=== PATIENT | female | born 1980 | race African-American/Black ===

== ENCOUNTER 2016-10-04 09:56 | Emergency (ER) | payer OTHER ==
[~2016-10-04] VITALS: Ht 165.1 cm; Wt 74.8 kg
--- NOTE | ~2016-10-04 | EKG ---
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
[~2016-10-04 09:56] MED LIST: BC POWDER; BC POWDER PO; CLEOCIN HCL150 MG PO; CYCLOBENZAPRINE5 MG PO; NORCO 5-325 TA1 EACH PO
[2016-10-04 10:27] LABS: MCH 20.5 pg (26.0-34.0); RDW 18.1 % (10.5-14.5)
[2016-10-04 10:28] LABS: HEMATOCRIT 22.2 % (37.0-47.0); MCHC 29.2 g/dL (28.0-37.0); MCV 70.1 fL (80.0-100.0); PLATELET COUNT 533 thou/uL (150-400); RBC 3.17 mil/uL (4.20-5.00); WBC 3.4 thou/uL (4.0-11.0)
[2016-10-04 10:34] LABS: MANUAL DIFF YES
[2016-10-04 10:35] LABS: HEMOGLOBIN 6.5 gm/dL (12.0-15.0)
[2016-10-04 10:36] LABS: ANION GAP 9 mmol/L (7-16); BUN 13 mg/dL (7-18); CALCIUM 8.9 mg/dL (8.5-10.1); CHLORIDE 105 mmol/L (98-107); CO2 27 mmol/L (21-32); CREATININE 0.8 mg/dL (0.6-1.0); GLUCOSE 86 mg/dL (74-106); SODIUM 141 mmol/L (136-145)
[2016-10-04 10:37] LABS: POTASSIUM 3.7 mmol/L (3.5-5.1)
[2016-10-04 10:44] LABS: TROPONIN-I < 0.04 ng/mL (<0.04-0.07)
[2016-10-04 11:07] LABS: ANISOCYTOSIS 1+; HYPOCHROMASIA 2+; MICROCYTES 2+; PLATELET ESTIMATE INCREASED; TOTAL CELL COUNT 100
[2016-10-04 11:35] VITALS: BP 135/86
== END 2016-10-04 16:40 | disposition home or self-care (01) ==
LOC: ER 09:56
PROVIDERS: Emergency Medicine
DX: R00.2 Palpitations (principal); D64.9 Anemia, unspecified; F17.210 Nicotine dependence, cigarettes, uncomplicated; F10.99 Alcohol use, unspecified with unspecified alcohol-induced disorder; Z88.0 Allergy status to penicillin; Z88.6 Allergy status to analgesic agent

== ENCOUNTER 2018-09-19 12:01 | Emergency (ER) | payer OTHER ==
[~2018-09-19] VITALS: Ht 165.1 cm; Wt 72.6 kg
[2018-09-19] MEDS ORDERED: NORCO 5-325 TA1 EAC1 PO (14:16)
[2018-09-19] MEDS ORDERED: ASPERCREME1 EACH TRANSDERM (14:16)
[2018-09-19 15:12] VITALS: BP 161/89
--- NOTE | 2018-09-19 16:25 | EKG ---
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 : 1980 Requested By: Helena Lee Order Number: [id number] MD: Rubén Barnett Measurements Intervals [place] Rate: 75 P: 62 [place]: 163 QRS: 15 QRSD: 90 T: -12 QT: 385 QTc: 430 Interpretive Statements Sinus rhythm Borderline T abnormalities, inferior leads Compared to ECG 10/04/2016 10:03:33 T-wave abnormality now present Electronically Signed On 09-19-2018 16:25:44 CDT by Rubén Barnett [email or web address] ��������������������������������������������� <ELECTRONICALLY SIGNED> ���������������������������������������� By: Rubén Barnett MD, [facility] ��������������������������������������������� 09/19/18 1625 1310 1310 Rubén Barnett MD, FACC /EPI
== END 2018-09-19 14:54 | disposition home or self-care (01) ==
LOC: ER 12:01
DX: M54.10 Radiculopathy, site unspecified (principal); M79.602 Pain in left arm; F17.210 Nicotine dependence, cigarettes, uncomplicated; Z88.0 Allergy status to penicillin; Z88.6 Allergy status to analgesic agent

== ENCOUNTER 2020-09-23 13:10 | Emergency (ER) | payer OTHER ==
[~2020-09-23] VITALS: Ht 152.4 cm; Wt 59.0 kg
--- NOTE | ~2020-09-23 | EMS ---
[facility] [address] [place] [address] EMS Patient Care Report Name: DARLEEN BRADEN Room #: DEP KATHARINA Marshall#: [id number] Admission: 09/23/20 Attend Phys: Discharge: 09/23/20 Date of : [birth year] Report #: [id number] THIS REPORT FOR: //name// Report Transmitted: 09/24/2020 13:07 EMS Care Summary [place], [place]/[facility] Incident [id number] @ 09/23/2020 12:14 Incident Location [address] [place] [address] Patient DARLEEN BRADEN Female, 40 Years 1980 Patient Address [address] [place] [address] Patient History Back Pain (Chronic), Patient Allergies No known allergies, Patient Medications None Reported, Chief Complaint DIZZINESS Disposition Transported No Lights/[place] Dispatch Reason Sick Person Transported To [facility] Narrative Pt is feeling dizzy and light headed. Dizziness and feeling lightheaded gets worse when standing. Pt states that she has had a sore throat for 5 days. pt states that her oral intake of food and water has been decreased. Pt also has back pain for previous injury fo=rom a moth ago. Upon arrival found pt [facility] [address] [place] [address] EMS Patient Care Report Name: DARLEEN BRADEN Room #: DEP ER Rolando#: [id number] Admission: 09/23/20 Attend Phys: Discharge: 09/23/20 Date of : [birth year] Report #: [id number] ambulatory, A&OX4. Pt transported to [facility]. no changes en route. Pt care transferred to [facility] ED nursing staff. Initial Vitals @12:40P: 112,CO: 10,SpO2: 100,NE Suspected: false @12:33P: 113,R: 18,BP: 136/90,Pain: 6/10,GCS: 15,Glucose: 123,CO: 9,SpO2: 100,Revised Trauma: 12, @12:51P: 110,R: 18,BP: 137/87,GCS: 15,CO: 7,SpO2: 97,Revised Trauma: 12, Assessments @12:57MENTAL:Event Oriented,Time Oriented,Person Oriented,Place Oriented,SKIN:HEENT:Head/Face: No Abnormalities,Neck/Airway: No Abnormalities,LUNG SOUNDS:Left Upper: No Abnormalities,Right Upper: No Abnormalities,Left Lower: No Abnormalities,Right Lower: No Abnormalities,ABDOMEN:Left Upper: No Abnormalities,Right Upper: No Abnormalities,Left Lower: No Abnormalities,Right Lower: No Abnormalities,PELVIS//GI:No Abnormalities,EXTREMITIES:Left Arm: No Abnormalities,Right Arm: No Abnormalities,Left Leg: No Abnormalities,Right Leg: No Abnormalities,PULSE:NEURO:No Abnormalities, Impression Dizziness Procedures @12:30ALS AssessmentResponse: Unchanged@12:353-Lead ECGResponse: Unchanged@12:41Saline Lock 5cc (20 ga) Site: Antecubital-RightResponse: UnchangedSucceeded@12:4012-Lead ECGResponse: Unchanged Timeline 12:11,Call Received 12:11,Dispatch Notified 12:14,Dispatched 12:16,En Route 12:24,On Scene 12:26,At Patient 12:30,ALS Assessment,Response: Unchanged 12:33,BP: 136/90 M,PULSE: 113,RR: 18 R,SPO2: 100 Ox,ETCO2: ,B,PAIN: 6,GCS: 15, 12:35,3-Lead ECG,Response: Unchanged 12:40,12-Lead ECG,Response: Unchanged 12:40,BP: / M,PULSE: 112,RR: R,SPO2: 100 Ox,ETCO2: ,BG: ,PAIN: ,GCS: , 12:41,Saline Lock 5cc 20 ga Site: Antecubital-Right,Response: UnchangedSucceeded, 12:45,Depart Scene 12:51,BP: 137/87 M,PULSE: 110,RR: 18 R,SPO2: 97 Ox,ETCO2: ,BG: ,PAIN: ,GCS: 15, 13:07,At Destination [address] [address] EMS Patient Care Report Name: DARLEEN BRADEN Room #: DELBERT Marshall#: [id number] Admission: 09/23/20 Attend Phys: Discharge: 09/23/20 Date of : [birth year] Report #: [id number] 13:19,Call Closed Disclaimer [email or web address] Copyright 2020 [employer] This EMS Care Summary contains data elements from the applicable legal record (which may be displayed differently). It is designed to provide pertinent information for the following purposes: continuity of care, clinical quality, and state data reporting. The complete legal record is available to ED staff and administrators of the receiving hospital in [employer]'s Patient Tracker. All data is provided "as is."
[~2020-09-23 13:10] MED LIST changes: +ASPERCREME1 EACH TRANSDERM; +NORCO 5-325 TA1 EAC1 PO
[2020-09-23 13:17] VITALS: BP 140/94
[2020-09-23 13:36] LABS: HEMOGLOBIN 7.4 gm/dL (12.0-15.0)
[2020-09-23 13:41] LABS: WBC 4.3 thou/uL (4.0-11.0)
[2020-09-23 13:44] LABS: CALCIUM 9.1 mg/dL (8.5-10.1); CREATININE 0.8 mg/dL (0.6-1.0); POTASSIUM 3.5 mmol/L (3.5-5.1)
[2020-09-23 13:45] LABS: HEMATOCRIT 25.4 % (37.0-47.0); MCH 18.6 pg (26.0-34.0); MCV 64.1 fL (80.0-100.0); PLATELET COUNT 476 thou/uL (150-400); RBC 3.96 mil/uL (4.20-5.00); RDW 18.1 % (10.5-14.5)
[2020-09-23 13:50] LABS: ALBUMIN 4.3 g/dL (3.4-5.0); TOTAL BILIRUBIN 0.3 mg/dL (0.2-1.0); TOTAL PROTEIN 7.6 g/dL (6.4-8.2)
[2020-09-23 14:20] LABS: ABSOLUTE NEUTROPHILS 3.2 thou/uL (1.4-8.2); ANISOCYTOSIS 2+; HYPOCHROMASIA 2+; MICROCYTES 2+; PLATELET ESTIMATE NORMAL
[2020-09-23] MEDS ORDERED: ONDANSETRON HCL4 M2 PO (16:35)
[2020-09-23] MEDS ORDERED: CARAFATE 1 GM TA1 G1 PO (16:35)
[2020-09-23] MEDS ORDERED: OMEPRAZOLE 20 M20 M1 PO (16:35)
== END 2020-09-23 16:35 | disposition home or self-care (01) ==
LOC: ER 13:10
PROVIDERS: Emergency Medicine
DX: R13.10 Dysphagia, unspecified (principal); F17.210 Nicotine dependence, cigarettes, uncomplicated; Z20.822 Contact with and (suspected) exposure to COVID-19; Z79.891 Long term (current) use of opiate analgesic; Z79.899 Other long term (current) drug therapy; Z88.6 Allergy status to analgesic agent; Z88.0 Allergy status to penicillin; Z88.8 Allergy status to other drugs, medicaments and biological substances